=== PATIENT | male | born 1955 | race Asian ===

== ENCOUNTER 2024-05-04 11:23 | Day surgery (SDC) | payer OTHER ==
[2024-04-29 10:46] VITALS: BMI 29.0
[2024-05-04 11:44] VITALS: RESP 18
[2024-05-04 12:30] VITALS: TEMP 97
[2024-05-04 12:31] VITALS: BP 131/78; PULSE 56
== END 2024-05-04 13:46 | disposition home or self-care (01) ==
LOC: FASU-ENDO 11:23
PROVIDERS: ATTEND Internal Medicine Gastroenterology
PROC: 0DB68ZX Excision of Stomach, Via Natural or Artificial Opening Endoscopic, Diagnostic (ICD-10-PCS; 2024-05-04)
PROC: 0DB28ZX Excision of Middle Esophagus, Via Natural or Artificial Opening Endoscopic, Diagnostic (ICD-10-PCS; 2024-05-04)
PROC: 0DB48ZX Excision of Esophagogastric Junction, Via Natural or Artificial Opening Endoscopic, Diagnostic (ICD-10-PCS; 2024-05-04)
PROC: 0DB98ZX Excision of Duodenum, Via Natural or Artificial Opening Endoscopic, Diagnostic (ICD-10-PCS; principal; 2024-05-04 12:04)
DX: K20.90 Esophagitis, unspecified without bleeding (principal)
CPT/HCPCS: 88305-TC; 88342-TC